=== PATIENT | female | born 1935 | race Caucasian/White ===

== ENCOUNTER → 2017-02-25 | Outpatient (REF) | payer MEDICARE, OTHER ==
[~2017-02-25] MED LIST: /AUGM875TA; /FEXO18TA; /WARF25TA; ASPI325T; ATEN50TA2; ATIV0.5T; ATIV1TAB2; BACT2CRE; CALCCHW12; CALCIUM AND VIT D; CALCTAB22; CHONDROITIN; COLA100C2; COZA100T; DARV100T; FERR325T; GLUCOSAMINE; KEFL500C; NAPR250T; NAPROXEN SODIUM; NAPRPOW4; OXYC10TA97; PERC5TAB8; PERC7.5T8; PREG50CA; SENN8.6T5; SERT25TA2; SLOW FE; THERGRAN; TYLENOL #3
== END ==
LOC: M LAB REF 16:32
PROVIDERS: ATTEND Otolaryngology
DX: C44.319 Basal cell carcinoma of skin of other parts of face (principal)